=== PATIENT | male | born 1955 | race Caucasian/White ===

== ENCOUNTER 2018-04-29 09:14 | Day surgery (SDC) | payer OTHER ==
[~2018-04-29] VITALS: Ht 182.9 cm; Wt 77.4 kg
[~2018-04-29 09:14] MED LIST: ASPI-496 PO; CREON DR PO; CYAN100074 PO; DIME1CAP PO; METFORMIN PO; MIRT15TA4 PO; PANT20TA3 PO; VITAMIN D 3 PO
[2018-04-29 10:35] VITALS: BP 119/83
[2018-04-29] MEDS ORDERED: LACTATED RINGERS 1,000 ML IV SCH (11:07)
[2018-04-29] MEDS ORDERED: DEXAMETHASONE 4 MG/ML, 1ML ONE (11:20)
[2018-04-29] MEDS ORDERED: SUCCINYLCHOLINE 20 MG/ML, 10ML ONE (11:20)
[2018-04-29] MEDS ORDERED: PROPOFOL 10 MG/ML, 20ML ONE (11:20)
[2018-04-29] MEDS ORDERED: ONDANSETRON 2MG/ML, 2ML ONE (11:20)
[2018-04-29] MEDS ORDERED: SUGAMMADEX 200 MG/2 ML IVPush ONE (11:25)
[2018-04-29 11:29] LABS: ALBUMIN 3.1 g/dL (3.4-5.0); ANION GAP 8 mmol/L (5-15); CALCIUM 8.9 mg/dL (8.5-10.1); CHLORIDE 103 mmol/L (98-107)
[2018-04-29 11:33] LABS: ALANINE AMINOTRANSFERASE 16 U/L (12-78); ALKALINE PHOSPHATASE 97 U/L (45-117); BILIRUBIN,TOTAL 0.7 mg/dL (0.2-1.0); CREATININE 0.61 mg/dL (0.7-1.3); TOTAL PROTEIN 6.3 g/dL (6.4-8.2)
[2018-04-29] MEDS ORDERED: PHENYLEPHRINE 10 MG/ML ONE (11:33)
[2018-04-29] MEDS ORDERED: ROCURONIUM 10 MG/ML,10ML ONE (11:33)
== END 2018-04-29 14:05 | disposition home or self-care (01) ==
LOC: OUT 09:14
PROVIDERS: ATTEND Internal Medicine Geriatric Medicine
DX: K86.1 Other chronic pancreatitis (principal); K86.81 Exocrine pancreatic insufficiency; E11.9 Type 2 diabetes mellitus without complications; F32.9 Major depressive disorder, single episode, unspecified; Z88.8 Allergy status to other drugs, medicaments and biological substances; Z98.890 Other specified postprocedural states; Z86.718 Personal history of other venous thrombosis and embolism; Z79.82 Long term (current) use of aspirin; Z79.84 Long term (current) use of oral hypoglycemic drugs
CPT/HCPCS: 36415; 43275; 80053; 93005; J1100; J2370; J2405; J2704; J0330